=== PATIENT | female | born 1985 | race Caucasian/White ===

== ENCOUNTER 2016-10-22 01:29 | Emergency (ER) | payer MEDICAID | END 2016-10-22 02:19 | disposition home or self-care (01) | LOC: D.ER 01:29 | DX: K04.7 Periapical abscess without sinus (principal); K02.9 Dental caries, unspecified; K08.89 Other specified disorders of teeth and supporting structures ==

== ENCOUNTER 2016-11-15 20:51 | Emergency (ER) | payer MEDICAID ==
[2016-11-15 22:37] LABS: APPEARANCE CLEAR (CLEAR); COLOR DK YELLOW (YELLOW); LEUKOCYTE ESTERASE NEGATIVE (NEGATIVE)
[2016-11-15 22:38] LABS: BILIRUBIN 3+ (NEGATIVE); GLUCOSE NEGATIVE (NEGATIVE); KETONE NEGATIVE (NEGATIVE); NITRITE NEGATIVE (NEGATIVE); PROTEIN NEGATIVE (NEGATIVE); UROBILINOGEN NORMAL (NORMAL)
[2016-11-15 22:41] LABS: BACTERIA MODERATE /hpf (NONE SEEN); EPITHELIAL CELLS 0-5 /hpf (0-5); RED CELLS - URINE OCC /hpf (0-5); WHITE CELLS - URINE 0-5 /hpf (0-5)
[2016-11-15 22:43] LABS: UDS - AMPHET POSITIVE QUAL (NEGATIVE); UDS - BARB NEGATIVE QUAL (NEGATIVE); UDS - BENZO NEGATIVE QUAL (NEGATIVE); UDS - COCAINE NEGATIVE QUAL (NEGATIVE); UDS - METH NEGATIVE QUAL (NEGATIVE); UDS - OPIATE POSITIVE QUAL (NEGATIVE); UDS - PCP NEGATIVE QUAL (NEGATIVE); UDS - THC POSITIVE QUAL (NEGATIVE)
[2016-11-15 22:48] LABS: BASOPHILS 0.6 % (0.0-2.0); EOSINOPHILS 2.7 % (0-7); HEMATOCRIT 38.8 % (36.0-48.0); HEMOGLOBIN 13.7 g/dL (12-16); IMMATURE GRANULOCYTES 0.2 % (0-5); LYMPHOCYTES 27.3 % (15-50); MCH 30.9 pg (26.0-34.0); MCHC 35.3 g/dL (31.0-37.0); MCV 87.6 fL (80.0-100.0); MEAN PLATELET VOLUME 11.5 fL (7.4-10.4); NEUTROPHILS 60.2 % (40-80); PLATELET COUNT 333 10x3/uL (130-400); RBC 4.43 10x6/uL (4.00-5.40); RDW 16.3 % (11.5-14.5)
[2016-11-15 23:11] LABS: MONO NEGATIVE (NEGATIVE)
[2016-11-15 23:16] LABS: ALBUMIN 3.4 g/dL (3.4-5.0); ALKALINE PHOSPHATASE 243 U/L (46-116); CALC OSMOLALITY 273 mosm/kg (275-300); CALCIUM 8.4 mg/dL (8.5-10.1); CARBON DIOXIDE 30.4 mmol/L (21.0-32.0); CHLORIDE - SERUM 102 mmol/L (98-107); CREATININE - SERUM 0.4 mg/dL (0.6-1.3); GLUCOSE 88 mg/dL (74-106); LIPASE 103 U/L (73-393); SODIUM 138 mmol/L (136-145); UREA NITROGEN 9 mg/dL (7-18); eGFR NON AFRICAN AMERICAN > 90 mL/min (90-120)
[2016-11-15 23:17] LABS: ALT (SGPT) 2096 U/L (10-68)
[2016-11-17 09:17] LABS: HEPATITIS C ANTIBODY >11.0 (0.0-0.9)
[2016-11-17 13:16] LABS: EBV - EARLY ANTIGEN AB IGG 25.7 U/mL (0.0-8.9); EBV VIRAL CAPSID AB IGG >600.0 U/mL (0.0-17.9); EBV VIRAL CAPSID AB IGM <36.0 U/mL (0.0-35.9)
== END 2016-11-16 00:30 | disposition home or self-care (01) ==
LOC: D.ER 20:51
PROVIDERS: Physician Assistant
DX: R17 Unspecified jaundice (principal); R10.84 Generalized abdominal pain; Z98.818 Other dental procedure status; R16.0 Hepatomegaly, not elsewhere classified